=== PATIENT | male | born 1940 | race Caucasian/White ===

== ENCOUNTER 2017-05-26 12:38 | Emergency (ER) | payer MEDICARE, BC ==
[2017-05-26 13:28] LABS: Bilirubin Negative (Negative); Blood, Urine Moderate (Negative); Clarity Cloudy (Clear); Glucose, Urine (Dipstick) Negative (Negative); Leukocyte Trace (Negative); Nitrite Negative (Negative); Protein, Urine (Dipstick) 30 mg/dL (Neg-Trace); Urobilinogen 0.2 mg/dL (0.2-1.0)
[2017-05-26 13:35] LABS: Squamous Epithelial 0-3 HPF (0-3)
[2017-05-26 13:36] LABS: Bacteria/HPF Rare-Few HPF (None Seen); Crystals/HPF 1+ AMORPH PHOS HPF (Negative)
--- NOTE | 2017-05-26 13:48 | CT ---
CT ABDOMEN AND PELVIS WITHOUT CONTRAST: HISTORY: Left-sided flank pain. History of kidney stones. COMPARISON: None. TECHNIQUE: Multiple contiguous axial images were obtained in a CT of the abdomen and pelvis without contrast. C oronal reformats were performed. FINDINGS: There is a punctate, 1 mm calcification at the left ureterovesical junction. No significant hydronep hrosis is seen. Additional punctate calcifications are seen in both kidneys. There are hypodensitie s in both kidneys, measuring up to 1.4 cm in size, which likely represent cysts. There is a calcified gallstone in the gallbladder. There are hypodensities in the liver, measuring u p to 1.4 cm in size, which likely represent cysts. The adrenal glands, spleen, and pancreas are unre markable, although evaluation is limited without IV contrast. The visualized large and small bowel are unremarkable. The appendix is unremarkable. Atheroscleroti c calcifications are seen in the aorta. No abdominal or pelvic lymphadenopathy is appreciated. Mild degenerative changes are seen in the spine. The visualized inferior thorax and abdominal wall s oft tissues are unremarkable. IMPRESSION: 1. Left distal ureteral calcification without significant hydronephrosis. 2. Nonobstructing bilateral renal calcifications. 3. Calcified gallstone. 4. Hepatic cysts. POS: [facility]
== END 2017-05-26 14:17 | disposition home or self-care (01) ==
LOC: SCSER 12:38
DX: N20.2 Calculus of kidney with calculus of ureter (principal); E78.5 Hyperlipidemia, unspecified; Z79.899 Other long term (current) drug therapy
CPT/HCPCS: 74176; 81003; 81015

== ENCOUNTER 2018-07-05 16:09 | Outpatient (CLI) | payer MEDICARE, BC ==
--- NOTE | 2018-07-05 16:37 | RAD ---
FExam: 1 view abdomen COMPARISON: None FINDINGS: Nonspecific bowel gas pattern. No suspicious densities in the abdomen. Vascular calcificati ons are noted. No evidence of calcifications over either renal silhouette. Persistent calcification projecting over the left hemipelvis compatible with a 5 mm distal left ureteral calculus, unchanged from CT performed on 05/26/2017 IMPRESSION: Stable distal left ureteral calculus.
== END 2018-07-05 16:10 | disposition home or self-care (01) ==
LOC: RAD 16:09
PROVIDERS: ATTEND Urology
DX: N20.0 Calculus of kidney (principal); N20.1 Calculus of ureter
CPT/HCPCS: 74018

== ENCOUNTER 2018-12-04 09:28 | Emergency (ER) | payer MEDICARE, BC ==
[2018-12-04 10:03] LABS: #Eosinphils 0.1 thou/uL (0.0-0.7); #Lymphocytes 1.8 thou/uL (1.20-3.40); #Monocytes 0.4 thou/uL (0.11-0.59); #Neutrophils 1.7 thou/uL (1.40-6.50); %Basophils 1.1 % (0.0-1.0); %Lymphocytes 44.7 % (21.0-51.0); %Monocytes 9.4 % (0.0-10.0); %Neutrophils 42.8 % (42.0-75.0); Hemoglobin 14.9 g/dL (14.0-18.0); Mean Corpuscular HGB CONC 34.7 g/dL (32.0-36.0); Mean Corpuscular Volume 92.1 fL (78.0-98.0); Mean Platelet Volume 7.4 fL (7.4-10.4); Platelet Count 175 thou/uL (130-400); Red Blood Cell (RBC) Count 4.67 mill/uL (4.70-6.10)
[2018-12-04 10:08] LABS: ALT (SGPT) 30 U/L (8-55); AST (SGOT) 28 U/L (5-34); Alkaline Phosphatase 46 U/L (40-150); Anion Gap 11 mmol/L (10-20); BUN (Urea Nitrogen) 19 mg/dL (8.4-25.7); Bilirubin, Total 0.9 mg/dL (0.2-1.2); Calc. Creatinine Clearance 0 mL/min (70-130); Calcium 9.7 mg/dL (7.8-10.44); Carbon Dioxide 24 mmol/L (23-31); Chloride 108 mmol/L (98-107); Estimated GFR-MDRD 62; Globulin 2.6 g/dL (2.4-3.5); Glucose 141 mg/dL (83-110); Lipase 20 U/L (8-78); Protein, Total 6.6 g/dL (5.8-8.1); Sodium 139 mmol/L (136-145)
[2018-12-04] MEDS ORDERED: Morphine 4 MG/ML VIAL ONE ×2 (10:34→11:06)
[2018-12-04] MEDS ORDERED: Ketorolac Tromethamine 30 MG/ML VIAL ONE (11:06)
[2018-12-04] MEDS ORDERED: Ondansetron PF 4 MG/2 ML Vial ONE (11:06)
--- NOTE | 2018-12-04 11:27 | CT ---
CT ABDOMEN AND PELVIS: Date: 12/04/18 COMPARISON: 05/26/17. HISTORY: Flank pain. TECHNIQUE: Axial CT imaging at 5 mm intervals from lung bases through pubic symphysis without contrast. Coronal reformatted imaging obtained. FINDINGS: Lack of contrast limits assessment of the viscera, bowel vascular structures, and for lymphadenopathy . The superior aspect of the liver and spleen are not fully imaged on this exam. There is a partially visualized hypodense lesion within the left lobe of the liver measuring 1.2 cm, likely representing a cyst, stable when compared to a prior exam. There is a calcified stone within the gallbladder on im age 16 measuring 5 mm. Imaged portions of the spleen appear grossly unremarkable. The pancreas and adrenal glands appear unremarkable. Two punctate nonobstructing stones are noted within the lower pole of the left kidney. There is no ev idence for obstructive uropathy on the left. There are three punctate intrarenal calculi on the right. There is right-sided perinephric stranding and right-sided hydronephrosis. This is secondary to a stone within the proximal right ureter at the ureteropelvic junction measuring 3.0 mm. No additional obstructing stone noted on the right. There is a cyst in the lower pole of the right kidney. Prostate gland is prominent. Bilateral fat-containing inguinal hernias are present. There is no evidence for bowel obstruction or bowel inflammatory change. The appendix is unremarkable . There is atherosclerotic calcification of the infrarenal abdominal aorta and the arterial structures of the imaged lower extremities. Review of the osseous structures demonstrates no acute osseous abnormality. IMPRESSION: 1. Obstructive uropathy on the right secondary to a 3 mm obstructing stone within the right ureterop elvic junction. 2. Bilateral intrarenal calculi. 3. Cholelithiasis. 4. No evidence for appendicitis. POS: OFF
[2018-12-04 12:03] LABS: Bilirubin Negative (Negative); Blood, Urine Large (Negative); Clarity Clear (Clear); Glucose, Urine (Dipstick) Negative (Negative); Leukocyte Negative (Negative); Nitrite Negative (Negative); Protein, Urine (Dipstick) 30 mg/dL (Neg-Trace)
[2018-12-04 12:10] LABS: Bacteria/HPF Rare-Few HPF (None Seen); RBC/HPF 21-50 HPF (0-3); Squamous Epithelial 0-3 HPF (0-3); WBC/HPF 0-3 HPF (0-3)
== END 2018-12-04 12:24 | disposition home or self-care (01) ==
LOC: SCSER 09:28
DX: N13.2 Hydronephrosis with renal and ureteral calculous obstruction (principal); E78.5 Hyperlipidemia, unspecified; E78.00 Pure hypercholesterolemia, unspecified; Z79.899 Other long term (current) drug therapy
CPT/HCPCS: 74176; 80053; 81003; 81015; 83690; 85025; 87086; 96361; 96374; 96375; J1885; J2270; J2405

== ENCOUNTER 2018-12-17 15:49 | Emergency (ER) | payer MEDICARE, BC ==
[2018-12-17 16:18] LABS: #Eosinphils 0.1 thou/uL (0.0-0.7); #Lymphocytes 1.5 thou/uL (1.20-3.40); #Monocytes 0.4 thou/uL (0.11-0.59); #Neutrophils 2.6 thou/uL (1.40-6.50); %Basophils 0.9 % (0.0-1.0); %Eosinophils 1.8 % (0.0-10.0); %Neutrophils 56.4 % (42.0-75.0); Hemoglobin 14.7 g/dL (14.0-18.0); Mean Corpuscular HGB CONC 34.3 g/dL (32.0-36.0); Mean Corpuscular Hemoglobin 31.9 pg (27.0-31.0); Mean Corpuscular Volume 93.2 fL (78.0-98.0); Mean Platelet Volume 6.6 fL (7.4-10.4); Platelet Count 178 thou/uL (130-400); Red Blood Cell (RBC) Count 4.61 mill/uL (4.70-6.10); White Blood Cell (WBC) Count 4.6 thou/uL (4.8-10.8)
[2018-12-17 16:26] LABS: Bilirubin Negative (Negative); Blood, Urine Trace (Negative); Clarity Clear (Clear); Glucose, Urine (Dipstick) Negative (Negative); Leukocyte Negative (Negative); Nitrite Negative (Negative); Protein, Urine (Dipstick) Negative (Neg-Trace); Urobilinogen 0.2 mg/dL (Less than 2)
[2018-12-17 16:28] LABS: Bacteria/HPF None Seen HPF (None Seen); RBC/HPF 0-3 HPF (0-3); Squamous Epithelial 0-3 HPF (0-3); WBC/HPF 0-3 HPF (0-3)
[2018-12-17 16:41] LABS: ALT (SGPT) 28 U/L (8-55); AST (SGOT) 26 U/L (5-34); Albumin 4.1 g/dL (3.4-4.8); Alkaline Phosphatase 49 U/L (40-150); Anion Gap 14 mmol/L (10-20); BUN (Urea Nitrogen) 15 mg/dL (8.4-25.7); Bilirubin, Total 0.6 mg/dL (0.2-1.2); Calc. Creatinine Clearance 0 mL/min (70-130); Carbon Dioxide 23 mmol/L (23-31); Chloride 107 mmol/L (98-107); Estimated GFR-MDRD 71; Globulin 2.8 g/dL (2.4-3.5); Glucose 124 mg/dL (83-110); Protein, Total 6.9 g/dL (5.8-8.1); Sodium 140 mmol/L (136-145)
--- NOTE | 2018-12-17 16:59 | CT ---
Exam: Abdomen CT without contrast Pelvic CT without contrast HISTORY: Flank pain. COMPARISON: 12/04/2018 FINDINGS: Abdomen CT: Lung bases:Clear Heart size: Normal size. No pericardial effusion Aorta: Normal caliber. No perinephric fat stranding Solid organs: Imaging evaluation due to the lack of IV contrast. Grossly no solid organ abnormality s table hypodensity in the liver. Lymph nodes: No gastrohepatic, retrocrural or periportal lymphadenopathy Gallbladder: Contracted. Gallstones present Mesentery: No mass, lymphadenopathy, free air or free fluid Kidneys: Within the left kidney, no hydronephrosis or perinephric fat stranding. Bilaterally stable p unctate 1 to 2 mm intrarenal calculi. Stable hypodensities in the left or right renal cortex. Regard to left kidney, no evidence of obstructive uropathy. There is a calculus stable 3 mm nodule is in the proximal right ureter/ureteropelvic junction with mild dilatation of the right renal pelvis. No significant calyceal dilatation. There is interval passage of a 1 mm calcification distal right ureter. Alimentary canal: No evidence of obstruction. Limited evaluation due to lack of oral contrast. No miguel iber appendix is noted. Ileocecal junction is unremarkable. CT PELVIS: No mass, adenopathy, free air or free fluid. Mild prostate gland enlargement. Urinary bladder: Interval passage of a calculus now noted in the right aspect of the urinary bladder. Calculus measures 3 mm. Osseous structures: No lytic or blastic lesions Hepatic parenchyma are redemonstrated IMPRESSION: 1. Redemonstration of bilateral nonobstructing intrarenal calculi 2. Redemonstration of a right-sided calculus in the right ureteropelvic junction. Mild dilatation of the right renal pelvis without significant calyceal dilatation. 3. Interval passage of a calculus now in the right aspect urinary bladder. Interval passage of a seco nd calculus now in the distal right ureter. 4. Cholelithiasis 5. Normal caliber appendix 6. Hypodensities in the left and right renal cortex, unchanged 7. Stable hypodensity in the liver.
== END 2018-12-17 17:32 | disposition home or self-care (01) ==
LOC: SCSER 15:49
DX: N20.2 Calculus of kidney with calculus of ureter (principal); K80.20 Calculus of gallbladder without cholecystitis without obstruction; E78.5 Hyperlipidemia, unspecified; E78.00 Pure hypercholesterolemia, unspecified; Z79.899 Other long term (current) drug therapy
CPT/HCPCS: 74176; 80053; 81003; 81015; 85025; 96360